=== PATIENT | male | born 1950 | race Caucasian/White ===

== ENCOUNTER → 2019-01-04 19:44 | Outpatient (REF) | payer MEDICARE, OTHER, SELFPAY | LOC: LAB 19:44 | PROVIDERS: PCP Family Medicine Geriatric Medicine; Visit Provider Family Medicine Geriatric Medicine | DX: D40.0 Neoplasm of uncertain behavior of prostate (principal) | CPT/HCPCS: 36415; 84153 ==

== ENCOUNTER 2019-06-01 12:27 | Day surgery (SDC) | payer MEDICARE, OTHER, SELFPAY ==
--- NOTE | 2019-06-01 | PATH_ITS ---
[facility] Accession Number: [id number] . 01 Material submitted: . colon - COLON POLYP AT 40 CM . 02 Diagnosis: Biopsy, Colon Polyp at 40 cm: Tubular adenoma. MRV/06/03/2019 . 02 Electronically signed: . Aroldo Beatty MD, Pathologist NPI- [id number] . 01 Gross description: . COLON POLYP AT 40 CM: Received in formalin is 1 fragment(s) of avila, soft tissue measuring 0.4 x 0.4 x 0.3 cm submitted entirely in 1 cassette(s) /CKI /CKI . 02 Pathologist provided ICD-10: D12.4 . 02 CPT . 472066 Performed at: 01 [facility] [address] [id number] MD Joseph Donaldson MD Phone: [phone] Performed at: 02 [facility] [place] [address] [place], [place] [id number] MD Shameka Garcia MD Phone: [phone]
[2019-06-01 13:06] VITALS: BP 134/77; PULSE 64; RESP 16; TEMP 36.6; O2SAT 97; BMI 31.1
[2019-06-01] MEDS: SODIUM CHLORIDE 0.9% 1,000 ML 100 ML IV (13:20)
--- NOTE | 2019-06-01 13:47 | PM.HP.1 ---
History of Present Illness Date Patient Seen: 06/01/19 Time Patient Seen: 13:47 Chief complaint: [id number] Narrative: History of colon polyps Patient History Social History household members: spouse Family & Social History Social History: household members spouse Meds Home Medications Medication Instructions Recorded Confirmed Type Resperidone 0.5 mg Q OTHER DAY 06/01/19 History trazodone 100 mg BEDTIME 06/01/19 06/01/19 History Allergies Allergy/AdvReac Type Severity Reaction Status Date / Time Penicillins AdvReac Intermediate Fainting Verified 06/01/19 13:22 Exam Vital Signs (past 8 hours): - 06/01/19 13:06 Temperature 97.9 F Pulse Rate 64 Respiratory Rate 16 Blood Pressure 134/77 Pulse Oximetry 97 Oxygen Delivery Method Room Air Narrative Exam Narrative: Oropharynx free of lesions Chest clear to auscultation percussion Cardiac exam reveals no S3 or murmur Assessment & Plan Assessment & Plan narrative: History of colon polyps need for follow-up colonoscopy. Risks, benefits, alternatives have been explained.
--- NOTE | 2019-06-01 13:48 | PM.OP.ENDO ---
Operative Date/Time/Diagnoses Date of procedure: 06/01/19 Time of procedure: 13:48 Pre-op diagnosis: See indication and findings Procedure & Clinicians Study performed: Colonoscopy Same procedure as scheduled: Yes Indications: History of colon polyps Surgeon: Shane Bragg Procedure Notes Procedure in detail: After informed consent was obtained the patient was placed in left lateral decubitus position. The video colonoscope was introduced the rectum slowly advanced to the cecum. On slow withdrawal mucosa was carefully examined. The scope was removed. The patient tolerated procedure well. Preparation was good. Blood loss none Complications none Sedation Total sedation time 24 minutes Versed 6 mg fentanyl 100 mg IV titration Findings 1. 1 cm polyp, pedunculated at 40 cm hot snared and removed completely 2. Extensive sigmoid diverticulosis 3. Otherwise negative colonoscopy to cecum We will be in touch with Liliana regarding his pathology and he will need follow-up colonoscopy in 3-5 years depending on the results.
[2019-06-01] MEDS: MIDAZOLAM 5 MG/5 ML VIAL IV (15:09)
[2019-06-01] MEDS: fentaNYL 250 MCG/5 ML INJ IV (15:09)
[2019-06-01 15:11] VITALS: BP 97/64; PULSE 60; RESP 13; TEMP 36.3; O2SAT 94
[2019-06-01 15:16] VITALS: BP 93/64; PULSE 59; RESP 12; O2SAT 92
[2019-06-01 15:21] VITALS: BP 97/63; PULSE 60; RESP 12; O2SAT 92
[2019-06-01 15:30] VITALS: BP 102/65; PULSE 69; RESP 16; TEMP 36.9; O2SAT 96
[2019-06-01 15:36] VITALS: BP 113/75; PULSE 64; RESP 12; TEMP 36.9; O2SAT 96
== END 2019-06-01 15:55 | disposition home or self-care (01) ==
PROVIDERS: PCP Family Medicine Geriatric Medicine; Visit Provider Internal Medicine Gastroenterology
PROC: 0DJD8ZZ Inspection of Lower Intestinal Tract, Via Natural or Artificial Opening Endoscopic (ICD-10-PCS; CPT 45378; principal; 2019-06-01 14:30)
DX: Z86.010 Personal history of colon polyps (principal); K57.30 Diverticulosis of large intestine without perforation or abscess without bleeding; D12.4 Benign neoplasm of descending colon
CPT/HCPCS: 45385; 88305; J2250; J3010

== ENCOUNTER → 2019-06-27 09:37 | Outpatient (CLI) | payer MEDICARE, OTHER, SELFPAY ==
--- NOTE | 2019-06-27 10:54 | PM.TREADMILL ---
Cardiac Stress Test Report Referral & Results Date Patient Seen: 06/27/19 Requesting provider: Lay Silva Indication: Chest discomfort Rest ECG: Unremarkable Procedure Note: Today following both written and verbal informed consent, the patient was exercised according to a standard Jono protocol. The patient exercised for a total of 10 minutes 15 seconds achieving a maximum heart rate of 182. Patient's maximum systolic blood pressure was 185. This was an estimated 10.1 MET's. There is lots of motion artifact while patient was on the treadmill but immediately upon cessation of activity there were absolutely no ST-T segment changes Rare PVC at rest and in recovery Function aerobic impairment way off the scale, estimate capacity equal to that of an active 50-year-old Impression: No evidence of ischemia Excellent exercise capacity Please note: Actual ECG tracings can be found in the PACS system.
== END ==
PROVIDERS: PCP Family Medicine Geriatric Medicine; Visit Provider Family Medicine Geriatric Medicine
DX: R07.9 Chest pain, unspecified (principal); R00.2 Palpitations
CPT/HCPCS: 93016; 93017; 93018